=== PATIENT | male | born 1990 | race Two or more races ===

== ENCOUNTER 2016-11-09 04:34 | Emergency (ER) | payer OTHER ==
[~2016-11-09] VITALS: Ht 177.8 cm; Wt 81.6 kg
[2016-11-09 04:35] VITALS: RESP 28
[2016-11-09 04:50] VITALS: RESP 28
== END 2016-11-09 04:50 ==
LOC: SED 04:34
DX: Z02.89 Encounter for other administrative examinations (principal)
CPT/HCPCS: 99283